=== PATIENT | female | born 1955 | race Asian ===

== ENCOUNTER 2018-10-27 16:58 | Emergency (ER) | payer OTHER ==
[~2018-10-27] VITALS: Ht 157.5 cm; Wt 54.4 kg
[2018-10-27] MEDS ORDERED: NKM (17:06)
--- NOTE | 2018-10-27 17:08 | NUR ---
ED Nurse Note: [place] [id number] [place]. Per EMS, pt fell off from escalator trying to help another person from falling. Pt reports falling on the right arm, c/o right elbow pain, CMS intact. Denies head injury. No trauma noted. Breathing normal/even/unlabored. Skin warm/dry/intact. NAD noted.
[2018-10-27 17:10] VITALS: BP 134/85
[2018-10-27] MEDS ORDERED: Ketorolac 60mg Inj IM ONE (17:15)
[2018-10-27] MEDS ORDERED: Tetanus/Diptheria/Pertussis IM ONE (17:15)
[2018-10-27] MEDS ORDERED: HYDROcodone/Acetamin 5/325 tab ORAL ONE (17:15)
--- NOTE | 2018-10-27 17:23 | Diagnostic Imaging Report ---
EXAM: XR Right Elbow Complete, 3 or More Views CLINICAL HISTORY: PAIN TECHNIQUE: Frontal, lateral and oblique views of the right elbow. COMPARISON: No relevant prior studies available. FINDINGS: Bones joints: Mildly prominent anterior fat pad is likely incidental, however, this could represent a small elbow joint effusion. If there is continued clinical concern for occult fracture, recommend cross-sectional imaging or follow-up radiograph-10 days. Mild degenerative findings lateral condyle. No dislocation. Soft tissues: Unremarkable. IMPRESSION: 1. No acute osseous abnormality definitively identified. 2. Mildly prominent anterior fat pad is likely incidental, however, this could represent a small elbow joint effusion. If there is continued clinical concern for occult fracture, recommend cross-sectional imaging or follow-up radiograph-10 days.
[2018-10-27] MEDS ORDERED: NAPROXEN250 MG ORAL (17:25)
--- NOTE | 2018-10-27 17:27 | Emergency Room Report ---
History of Present Illness General Chief Complaint: Multiple Trauma/Fall Source: Patient, EMS Present Illness HPI 63-year-old female presents with mechanical fall, patient got off the escalator and appropriately she hit her right elbow and right ear, no LOC, she endorses right elbow pain worse with movement alleviated with rest characterized as sharp , severity is moderate, intermittent, patient is not on any blood thinners no LOC, no chest pain or shortness of breath no abdominal pain patient presents for evaluation. Allergies: Coded Allergies: No Known Allergies (Unverified , 10/27/18) Patient History Past Medical History: see triage record Reviewed Nursing Documentation: PMH: Agreed; PSxH: Agreed Nursing Documentation-PMH Past Medical History: No Stated History Review of Systems All Other Systems: negative except mentioned in HPI Physical Exam Vital Signs Date Time Temp Pulse Resp B/P (MAP) Pulse Ox O2 Delivery O2 Flow Rate FiO2 10/27/18 17:03 97.2 72 18 134/85 (101) 97 Room Air General Appearance: well appearing, no apparent distress Head: normocephalic, atraumatic ENT: hearing grossly normal, normal voice Neck: full range of motion, supple Respiratory: no respiratory distress, speaking full sentences Musculoskeletal: other - Right elbow: 2+ radial pulses, no tenderness to palpation distal radius, distal ulnar aspect, no tenderness on the hand, patient with tenderness lateral elbow worse with movement, no obvious swelling no obvious deformity, sensation grossly intact radial median ulnar nerve intact Neurologic: alert, normal gait Skin: no rash Procedures Splinting Splinting : Consent: Verbal Location: right arm Hand-Made Type: plaster Splint: posterior long Pre-Proc Neuro Vasc Exam: normal Post-Proc Neuro Vasc Exam: normal Patient Tolerated: Well Complications: None Medical Decision Making Diagnostic Impression: Primary Impression: Fall Qualified Codes: W19.XXXA - Unspecified fall, initial encounter Additional Impressions: Contusion Qualified Codes: S50.01XA - Contusion of right elbow, initial encounter Elbow fracture, right Qualified Codes: S42.401A - Unspecified fracture of lower end of right humerus , initial encounter for closed fracture ER Course 63-year-old female presents with right elbow pain, most likely a fracture versus contusion versus bursitis There is an anterior fat pad on x-ray, there is a nondisplaced fracture of the radial head, will provide patient with a sling and flexion posterior long arm CT scan of the head shows no acute processes Neurovascular exam intact referral to orthopedics Other X-Ray Diagnostic Results Other X-Ray Diagnostic Results : X-Ray ordered: Right elbow # of Views/Limited Vs Complete: 3 View Indication: Pain EP Interpretation: Yes Interpretation: other - Proximal radial head fracture nondisplaced Impression: Other - Proximal radial head fracture nondisplaced Electronically Signed by: Gus Munoz MD CT/MRI/US Diagnostic Results CT/MRI/US Diagnostic Results : Impression CT head scan shows no acute processes Last Vital Signs Date Time Temp Pulse Resp B/P (MAP) Pulse Ox O2 Delivery O2 Flow Rate FiO2 10/27/18 17:03 97.2 72 18 134/85 (101) 97 Room Air Disposition: HOME, SELF-CARE Condition: Stable Scripts Naproxen* (NAPROSYN*) 250 Mg Tablet 250 MG ORAL BID PRN for For Pain, #20 TAB 0 Refills Prov: Gus Munoz MD 10/27/18 Referrals: Orthopedic Urgent Care Patient Instructions: Elbow Contusion, Elbow Fracture, Simple Additional Instructions: The patient was provided with discharge instructions, notified to follow-up with a primary care doctor and or specialist in the next 24-48 hours, and to return to the ED if they have worsening of their symptoms. Please note that this report is being documented using [employer] technology. This can lead to erroneous entry secondary to incorrect interpretation by the dictating instrument. Gus Munoz MD Oct 27, 2018 17:27
--- NOTE | 2018-10-27 17:41 | Diagnostic Imaging Report ---
EXAM: CT Head Without Intravenous Contrast CLINICAL HISTORY: FALL TECHNIQUE: Axial computed tomography images of the head brain without intravenous contrast. CTDI is 70 mGy and DLP is 1379 mGy-cm. One or more of the following dose reduction techniques were used: automated exposure control, adjustment of the mA and or kV according to patient size, use of iterative reconstruction technique. COMPARISON: No relevant prior studies available. FINDINGS: Brain: Unremarkable. No hemorrhage. No significant white matter disease. No edema. Ventricles: Unremarkable. No ventriculomegaly. Bones joints: Unremarkable. No acute fracture. Soft tissues: Unremarkable. Vasculature: Minimal cerebrovascular atherosclerosis. Sinuses: Unremarkable as visualized. No acute sinusitis. Mastoid air cells: Unremarkable as visualized. No mastoid effusion. IMPRESSION: 1. No acute intracranial abnormality. 2. Unremarkable for age unenhanced CT head.
[2018-10-27 18:30] VITALS: BP 134/85
--- NOTE | 2018-10-27 18:31 | NUR ---
ER DISCHARGE NOTE: Patient is cleared to be discharged per ERMD, pt is aox4, on room air, with stable vital signs. pt was given dc and prescription instructions, pt was able to verbalize understanding, pt id band removed without complications. pt is able to ambulate with steady gait. pt took all belongings. Splint and sling applied by BARBI Díaz.
== END 2018-10-27 18:31 | disposition home or self-care (01) ==
LOC: EDBD 16:58 → EMR 17:15
DX: S42.401A Unspecified fracture of lower end of right humerus, initial encounter for closed fracture (principal); S50.01XA Contusion of right elbow, initial encounter; W19.XXXA Unspecified fall, initial encounter; Z23 Encounter for immunization
CPT/HCPCS: 29105; 70450; 73080; 90471; 90715; 96372; Z7502; 99284